=== PATIENT | female | born 1960 | race Caucasian/White ===

== ENCOUNTER → 2018-09-16 | Outpatient (CLI) | payer OTHER ==
[~2018-09-16] MED LIST: (None)20 M1 PO; ACCOLATE; ALBIPROI INH; ALBU.083IS; ALBU90I INH; ALBU90OI; ALBU90OI INH; ALBU90OI61 INH; AMIT10 PO; AMIT25 PO; AMIT50 PO; AMOCLA500 PO; AMOX500 PO; ASPI81CH PO; ASPI81EC PO; AZIT250 PO; AZIT500 PO; Amoxicillin500 MG PO; Aspirin EC81 MG PO; Augmentin 875-1 EACH PO; BUDE6HFA INH; CEFP200; CEPH500; CEPH500 PO; CETI10 PO; CETI5; CHOL10002 PO; CIPRO500 MG PO; CLIN150 PO; CRUTCH3 USE; CYCL10; CYCL10 PO; Cetirizine HCl10 MG PO; Cipro500 MG PO; Cleocin HCl300 MG PO; DOCSEN PO; DOCU100 PO; EFFEXOR; ENOX100I SQ; ENOX60I SC; ESOM20; Flonase 0.05% N16 GM; Garamycin5 ML BOTHEYES; HYDACE10B; HYDACE10B PO; HYDACE5; HYDACE5 PO; HYDACE7.5; HYDGUAL120; HYDGUAL120 PO; HYDMOR2 PO; HYDR1TAB94; Inspiration1 EACH MC; Jantoven5 MG PO; Keflex500 MG PO; LACT10SY PO; LAVAP17G PO; MEDR10; MEDR5; MEDROXYPROGESTERONE; METH10; METH10 PO; MINO100 PO; MINOCIN; MIRT15 PO; MONT10T PO; Mucinex600 MG PO; NAPR375 PO; NAPR500 PO; NICO2 PO; NITR100CA PO; Norco 10-325 T1 EACH PO; Norco 5-325 Ta1 EACH PO; OMEP20ER; OMEP20ER PO; OMEP40CA12 PO; OXYACE5T PO; OXYC5 PO; Omeprazole20 M1 PO; PANT40; PARO12.5 PO; PARO25 PO; PARO30 PO; PAROXETINE ER37.5 MG PO; PENVK500 PO; PERM5TC TOP; PHENA200 PO; PRAV20; PRAV20 PO; PRED10 PO; PRED20 PO; PREG150; PREG50; PROACE100 PO; PROG100; PROGESTERONE; PULMACORT; Pravastatin Sod80 MG PO; Prednisone20 MG PO; Pyridium100 MG PO; RABE20; RANI150 PO; RXCYCL10 PO; RXHYD5325 PO; RXPROACE PO; RXSULTRIDS PO; SULTRIDS PO; SUPRENZA ODT15 MG PO; TRAM50 PO; TRAZ100; TRAZ100 PO; TRAZ50; TRAZADONE; VALA500 PO; VALD10; VANC250 PO; VENL150ER; VENL75; VENL75ER; VENL75ER PO; VICODIN; Ventolin Soln3 ML INH; Vibramycin100 MG PO; WARF10; WARF10 PO; WARF5; WARF5 PO; WARF7.5; WARF7.5 PO; WARFARIN; ZAFI20; ZYRTEC10 M1 PO; Zithromax250 MG PO; Zofran Odt4 MG SL; Zofran4 MG PO; Zofran8 MG PO; [UNRECOGNIZED DRUG - OTHER]
== END | disposition home or self-care (01) ==
LOC: LAB 19:22 → LAB SHORT 19:22
DX: N39.0 Urinary tract infection, site not specified (principal)
CPT/HCPCS: 87086

== ENCOUNTER 2018-09-17 17:52 | Emergency (ER) | payer OTHER ==
[~2018-09-17] VITALS: Ht 154.9 cm; Wt 104.3 kg
[~2018-09-17 17:52] MED LIST changes: -NICO2 PO
[2018-09-17 18:46] LABS: International Normalized Ratio 3.26
[2018-09-17] MEDS ORDERED: NICO2 PO (19:39)
== END 2018-09-17 19:50 | disposition home or self-care (01) ==
LOC: ER 17:52
PROVIDERS: Physician Assistant
DX: I82.532 Chronic embolism and thrombosis of left popliteal vein (principal); E78.00 Pure hypercholesterolemia, unspecified; G47.30 Sleep apnea, unspecified; F17.210 Nicotine dependence, cigarettes, uncomplicated; Z88.5 Allergy status to narcotic agent; Z91.040 Latex allergy status; Z91.048 Other nonmedicinal substance allergy status; Z79.899 Other long term (current) drug therapy; Z79.82 Long term (current) use of aspirin
CPT/HCPCS: 85610; 93971; 99284-25

== ENCOUNTER 2021-09-22 22:51 | Emergency (ER) | payer OTHER ==
[~2021-09-22] VITALS: Ht 154.9 cm; Wt 104.3 kg
[~2021-09-22 22:51] MED LIST changes: +NICO2 PO
[2021-09-22 23:42] LABS: Source, Urine Clean Catch
[2021-09-22 23:44] LABS: BASOPHILS ABSOLUTE AUTO 0.07 K/mm3 (0.00-0.23); BASOPHILS PERCENT AUTO 1 % (0-2); EOSINOPHILS ABSOLUTE AUTO 0.14 K/mm3 (0.00-0.68); EOSINOPHILS PERCENT AUTO 1 % (0-6); Hematocrit 49.5 % (33.0-51.0); Hemoglobin 16.3 g/dL (11.5-16.0); Mean Corpuscular HGB 29.3 pg (26.0-34.0); Mean Corpuscular HGB Conc 32.9 g/dL (31.5-36.5); Mean Corpuscular Volume 89 fL (80-100); Platelet Count 402 K/mm3 (150-400); RDW Coefficient Variation 17.1 % (11.7-14.2); RDW Standard Deviation 56.5 fL (35.1-46.3); Red Blood Cell Count 5.56 M/mm3 (3.80-5.20); White Blood Cell Count 14.47 K/mm3 (4.00-11.30)
[2021-09-22 23:46] LABS: Bilirubin, Urine Neg (Neg); Blood, Urine 5+ (Neg); Glucose Qualitative, Urine Neg (Neg); Ketones, Urine Neg (Neg); Leukocyte Esterase, Urine 2+ (Neg); Nitrite, Urine Neg (Neg); Protein, Urine 1+ (Neg); Specific Gravity, Urine 1.015 (1.003-1.022); Urobilinogen, Urine NORM (Normal)
[2021-09-22 23:52] LABS: IMMATURE GRAN ABSOLUTE AUTO 0.05 K/mm3 (0.00-0.10); IMMATURE GRAN PERCENT AUTO 0 % (0-1); LYMPHOCYTES ABSOLUTE AUTO 4.23 K/mm3 (0.84-5.20); LYMPHOCYTES PERCENT AUTO 29 % (21-46); MONOCYTES ABSOLUTE AUTO 1.82 K/mm3 (0.16-1.47); MONOCYTES PERCENT AUTO 13 % (4-13); NEUTROPHILS ABSOLUTE AUTO 8.16 K/mm3 (1.96-9.15); NEUTROPHILS PERCENT AUTO 56 % (41-73)
[2021-09-22 23:55] LABS: Appearance, Urine Hazy (Clear); Color, Urine Yellow (P-Yellow)
[2021-09-22 23:56] LABS: Bacteria Few /hpf; Squamous Epithelial Cells Rare /hpf (Few); White Blood Cells, Urine 50-100 /hpf (0-5)
[2021-09-23 00:02] LABS: Alanine Aminotransfer (ALT/SGP 38 U/L (12-78); Albumin, Blood 3.6 g/dL (3.4-5.0); Albumin/Globulin Ratio 0.8 (0.8-1.8); Alk Phos 131 U/L (50-136); Anion Gap 8 mmol/L (6-16); Aspartate Aminotrans (AST/SGOT 35 U/L (12-37); Bilirubin, Total 0.3 mg/dL (0.1-1.0); Blood Urea Nitrogen 9 mg/dL (8-24); Bun/Creatinine Ratio 10.3 (12.0-20.0); CO2, Blood 27 mmol/L (21-32); Calcium, Blood 9.3 mg/dL (8.5-10.1); Chloride, Blood 103 mmol/L (98-108); Creatinine, Blood 0.88 mg/dL (0.40-1.00); Globulin, Blood 4.7 g/dL (2.2-4.0); Glomerular Filtration Rate >60 (60-); Glucose, Blood 143 mg/dL (70-99); Potassium, Blood 3.8 mmol/L (3.5-5.5); Sodium, Blood 138 mmol/L (136-145); Total Protein, Blood 8.3 g/dL (6.4-8.2)
[2021-09-23 00:15] LABS: Phosphorus, Blood 2.9 mg/dL (2.5-4.9)
[2021-09-23] MEDS ORDERED: CEPH500 PO (01:46)
== END 2021-09-23 01:55 | disposition home or self-care (01) ==
LOC: ER 22:51
PROVIDERS: Student in an Organized Health Care Education/Training Program
DX: N39.0 Urinary tract infection, site not specified (principal); E78.00 Pure hypercholesterolemia, unspecified; F17.210 Nicotine dependence, cigarettes, uncomplicated; Z88.5 Allergy status to narcotic agent; Z91.040 Latex allergy status; Z88.8 Allergy status to other drugs, medicaments and biological substances; Z79.899 Other long term (current) drug therapy
CPT/HCPCS: 36415; 74176; 80053; 81001; 83605; 83735; 84100; 85025; 87086; 96374; 99284; J0696; J7030

== ENCOUNTER 2022-12-25 07:36 | Day surgery (SDC) | payer OTHER ==
--- NOTE | 2022-12-24 14:01 | NUR ---
MEDICATIONS AND ALLERGIES UPDATED WITH PATIENT ON THE PHONE.
[2022-12-25] VITALS (21 sets, daily range): BP systolic 81–142; BP diastolic 51–80
[~2022-12-25] VITALS: Ht 162.6 cm; Wt 94.0 kg
[~2022-12-25 07:36] MED LIST changes: +METF500 PO; +NYAMYC15 G1 TOP; -Omeprazole20 M1 PO; +Prinivil10 MG PO; +TIOT18 INH
--- NOTE | 2022-12-25 08:45 | NUR ---
Ambulatory in Day Surgery. History, Chart, Medications and Allergies reviewed before start of procedure. Lungs clear T/O to Auscultation. Patient confirms NPO status and agrees with scheduled surgery. Pre-Op teaching done. Pt verbalizes understanding. Patient States Post-Procedure ride home has been arranged.
--- NOTE | 2022-12-25 08:58 | NUR ---
12/25/22 0858 Camila Diallo HISTORY, CHART, MEDICATIONS AND ALLERGIES REVIEWED BEFORE START OF PROCEDURE. PATIENT CONFIRMS NPO STATUS AND AGREES WITH SCHEDULED PROCEDURE. 3-LEAD EKG REVIEWED WITH PHYSICIAN PRIOR TO START OF PROCEDURE. MONITOR INTACT WITH CONTINUOUS PULSE OXIMETRY,CAPNOGRAPHY, 3-LEAD EKG, INTERMITTENT BP. SUPPLEMENTAL O2 TO BE TITRATED THROUGHOUT PROCEDURE TO MAINTAIN O2 SATURATION ABOVE 90%. PATIENT DETERMINED TO BE ASA APPROPRIATE FOR PROPOFOL SEDATION PRIOR TO START OF PROCEDURE BY .
--- NOTE | 2022-12-25 09:58 | NUR ---
Discharge instructions reviewed with patient. Patient verbalizes understanding. Copy given to patient to take home. Discharged via wheelchair to private car for ride home.
== END 2022-12-25 10:05 | disposition home or self-care (01) ==
LOC: ORSCMMR 07:36 → ORD 08:30 → ORSCMMR 08:30
PROVIDERS: Internal Medicine Gastroenterology
PROC: 0DBM8ZX Excision of Descending Colon, Via Natural or Artificial Opening Endoscopic, Diagnostic (ICD-10-PCS; principal; 2022-12-25 08:30)
PROC: 0DBN8ZX Excision of Sigmoid Colon, Via Natural or Artificial Opening Endoscopic, Diagnostic (ICD-10-PCS; principal; 2022-12-25 08:30)
DX: Z12.11 Encounter for screening for malignant neoplasm of colon (principal); D12.4 Benign neoplasm of descending colon; D12.5 Benign neoplasm of sigmoid colon; J44.9 Chronic obstructive pulmonary disease, unspecified; E11.9 Type 2 diabetes mellitus without complications; I10 Essential (primary) hypertension; K21.9 Gastro-esophageal reflux disease without esophagitis; E78.00 Pure hypercholesterolemia, unspecified; Z86.718 Personal history of other venous thrombosis and embolism; Z86.711 Personal history of pulmonary embolism; F17.210 Nicotine dependence, cigarettes, uncomplicated; Z79.01 Long term (current) use of anticoagulants; Z79.84 Long term (current) use of oral hypoglycemic drugs; Z79.02 Long term (current) use of antithrombotics/antiplatelets; Z79.899 Other long term (current) drug therapy
CPT/HCPCS: 82947; 88305; J2250; J2704; J7120

== ENCOUNTER 2023-05-21 06:56 | Day surgery (SDC) | payer OTHER ==
[~2023-05-21] VITALS: Ht 154.9 cm; Wt 89.8 kg
[2023-05-21] VITALS (8 sets, daily range): BP systolic 129–160; BP diastolic 70–133
--- NOTE | 2023-05-21 10:30 | NUR ---
1000 PATIENT ARRIVES BACK FROM THE [facility] VIA BED, PLACED ON THE MONITOR AND CALL LIGHT IN REACH. SBAR RECEIVED FROM MALVIN WELCH RN. BILATERAL FLOWSTASIS TO POPITEALS IN PLACE. NO BLEEDING, NO HEMATOMAS NOTED. NIPB ELEVATED AND PATIENT C/O 8/10 LOW BACK PAIN FROM LYING ON TABLE ON [place]. REPOSITIONED PATIENT TO HER RIGHT SIDE WITH PILLOW BETWEEN HER LEGS AND FOR SUPPORT.
--- NOTE | 2023-05-21 10:33 | NUR ---
1025 COMNTINUES TO HAVE LOW BACK PAIN. OBTAINED ORDER FOR TYLENOL AND GAVE 2 TABS TO THE PATIENT.
--- NOTE | 2023-05-21 12:27 | NUR ---
1130 FLOWSTASIS BILATERALLY REMOVED WITHOUT DIFFICULTY. SITES CLEANED AND CLOT DOTS PLACED. PATIENT TOLERATED WELL.
--- NOTE | 2023-05-21 12:28 | NUR ---
1215 PATIENT UP TO THE RESTROOM AND AND THE WAY BACK FROM THE RESTROOM HAD A CRAMP IN THE LEFT CALF. ASSISTED BACK TO BED. NO BLEEDING NOTED. DR. VAZQUEZ TO THE BEDSIDE AND SPOKE TO THE PATIENT.
--- NOTE | 2023-05-21 12:35 | NUR ---
MOTHER AT THE BEDSIDE.
--- NOTE | 2023-05-21 13:14 | NUR ---
1300 PIV REMOVED, CATH TIP INTACT. PRESSURE DRESSING APPLIED TO THE LAND. PATIENT DRESSED SELF, ALL BELONGINGS GATHERED AND MOM WENT TO GET VEHICLE HOME HEALTH NURSE HOME. REVIEWED DISCHARGE INSTRUCTIONS. ALL QUESTIONS ANSWERED AND COPIES GIVEN.
--- NOTE | 2023-05-21 13:19 | NUR ---
PATIENT DISCHARGED HOME WITH MOM TRAVEL JOURNALIST.
== END 2023-05-21 14:07 | disposition home or self-care (01) ==
LOC: MHTC 06:56
DX: I87.002 Postthrombotic syndrome without complications of left lower extremity (principal); E78.5 Hyperlipidemia, unspecified; I10 Essential (primary) hypertension; E11.9 Type 2 diabetes mellitus without complications; Z79.84 Long term (current) use of oral hypoglycemic drugs; Z86.718 Personal history of other venous thrombosis and embolism
CPT/HCPCS: 37187; 37191; 37221; 37224; 37252; 37253; 75820; 75825; 76937; 99152; 99153; A9270; C1725; C1753; C1757; C1769; C1876; C1887; C1894; J1644; J2250; J3010; J7030; Q9967

== ENCOUNTER 2023-05-26 21:20 | Emergency (ER) | payer OTHER ==
[~2023-05-26] VITALS: Ht 154.9 cm; Wt 86.2 kg
[2023-05-26 21:24] VITALS: BP 138/65
[2023-05-26 21:56] LABS: BASOPHILS ABSOLUTE AUTO 0.06 K/mm3 (0.00-0.23); BASOPHILS PERCENT AUTO 0 % (0-2); EOSINOPHILS ABSOLUTE AUTO 0.12 K/mm3 (0.00-0.68); EOSINOPHILS PERCENT AUTO 1 % (0-6); Hemoglobin 12.6 g/dL (11.5-16.0); IMMATURE GRAN ABSOLUTE AUTO 0.06 K/mm3 (0.00-0.10); IMMATURE GRAN PERCENT AUTO 0 % (0-1); LYMPHOCYTES ABSOLUTE AUTO 2.95 K/mm3 (0.84-5.20); LYMPHOCYTES PERCENT AUTO 21 % (21-46); MONOCYTES ABSOLUTE AUTO 0.86 K/mm3 (0.16-1.47); MONOCYTES PERCENT AUTO 6 % (4-13); Mean Corpuscular HGB 29.4 pg (26.0-34.0); Mean Corpuscular HGB Conc 33.2 g/dL (31.5-36.5); Mean Corpuscular Volume 89 fL (80-100); Mean Platelet Volume 9.2 fL (9.1-12.4); NEUTROPHILS ABSOLUTE AUTO 10.11 K/mm3 (1.96-9.15); NEUTROPHILS PERCENT AUTO 72 % (41-73); Platelet Count 387 K/mm3 (150-400); RDW Coefficient Variation 16.7 % (11.7-14.2); RDW Standard Deviation 54.3 fL (35.1-46.3); Red Blood Cell Count 4.28 M/mm3 (3.80-5.20); White Blood Cell Count 14.16 K/mm3 (4.00-11.30)
[2023-05-26 22:14] LABS: Albumin/Globulin Ratio 0.7 (0.8-1.8); Bilirubin, Total 0.3 mg/dL (0.1-1.0); Bun/Creatinine Ratio 16.5 (12.0-20.0); Calcium, Blood 8.8 mg/dL (8.5-10.1); Creatinine, Blood 0.79 mg/dL (0.40-1.00); Globulin, Blood 4.6 g/dL (2.2-4.0); Potassium, Blood 4.1 mmol/L (3.5-5.5); Total Protein, Blood 7.6 g/dL (6.4-8.2)
[2023-05-27] MEDS ORDERED: Norco 10-325 T1 EACH PO (01:30)
[2023-05-27 01:57] LABS: International Normalized Ratio 1.96; Prothrombin Time Results 19.8 Sec (9.7-11.5)
== END 2023-05-27 02:35 | disposition home or self-care (01) ==
LOC: ER 21:20
PROVIDERS: Emergency Medicine; Student in an Organized Health Care Education/Training Program
DX: G89.18 Other acute postprocedural pain (principal); M79.662 Pain in left lower leg; I82.402 Acute embolism and thrombosis of unspecified deep veins of left lower extremity; E78.00 Pure hypercholesterolemia, unspecified; G47.30 Sleep apnea, unspecified; Z86.711 Personal history of pulmonary embolism; F17.210 Nicotine dependence, cigarettes, uncomplicated; Z79.01 Long term (current) use of anticoagulants; Z79.82 Long term (current) use of aspirin; Z79.84 Long term (current) use of oral hypoglycemic drugs; Z79.899 Other long term (current) drug therapy; Z88.5 Allergy status to narcotic agent; Z91.040 Latex allergy status; Z91.048 Other nonmedicinal substance allergy status
CPT/HCPCS: 73701; 80053; 85025; 85610; 93971; 96372; 99284-25; A9270; J1885; Q9967

== ENCOUNTER → 2023-10-22 | Outpatient (CLI) | payer OTHER | END | disposition home or self-care (01) | LOC: LAB 17:29 → LAB SHORT 17:29 | DX: L02.414 Cutaneous abscess of left upper limb (principal) | CPT/HCPCS: 87070; 87075; 87205 ==

== ENCOUNTER 2024-01-04 10:51 | Emergency (ER) | payer OTHER ==
[~2024-01-04] VITALS: Ht 154.9 cm; Wt 77.1 kg
[2024-01-04 11:10] VITALS: BP 135/84
[2024-01-04] MEDS ORDERED: HYDROcodone 5-APAP 325 TAB PO ONE (11:15)
[2024-01-04] MEDS ORDERED: HYDR1TAB94 PO (12:40)
== END 2024-01-04 13:05 | disposition home or self-care (01) ==
LOC: ER 10:51
DX: S42.202A Unspecified fracture of upper end of left humerus, initial encounter for closed fracture (principal); S09.90XA Unspecified injury of head, initial encounter; F17.210 Nicotine dependence, cigarettes, uncomplicated; E78.00 Pure hypercholesterolemia, unspecified; G47.30 Sleep apnea, unspecified; W17.2XXA Fall into hole, initial encounter; Z79.01 Long term (current) use of anticoagulants; Z79.899 Other long term (current) drug therapy; Z79.82 Long term (current) use of aspirin; Z79.84 Long term (current) use of oral hypoglycemic drugs; Z88.5 Allergy status to narcotic agent; Z91.040 Latex allergy status; Z88.8 Allergy status to other drugs, medicaments and biological substances; Z91.048 Other nonmedicinal substance allergy status
CPT/HCPCS: 70450; 73060; 99284-25; A9270

== ENCOUNTER 2024-06-30 17:12 | Emergency (ER) | payer OTHER ==
[~2024-06-30] VITALS: Ht 154.9 cm; Wt 88.5 kg
[~2024-06-30 17:12] MED LIST changes: +HYDR1TAB94 PO
[2024-06-30 17:26] VITALS: BP 164/72
[2024-06-30] MEDS ORDERED: ASPERFLEX1 EACH TOP (20:25)
== END 2024-06-30 20:41 | disposition home or self-care (01) ==
LOC: ER 17:12
DX: M79.622 Pain in left upper arm (principal); F17.210 Nicotine dependence, cigarettes, uncomplicated; E78.00 Pure hypercholesterolemia, unspecified; Z88.5 Allergy status to narcotic agent; Z91.040 Latex allergy status; Z79.899 Other long term (current) drug therapy; Z79.01 Long term (current) use of anticoagulants; Z79.82 Long term (current) use of aspirin; Z86.718 Personal history of other venous thrombosis and embolism; Z86.711 Personal history of pulmonary embolism; W01.0XXA Fall on same level from slipping, tripping and stumbling without subsequent striking against object, initial encounter; Y92.027 Garden or yard of mobile home as the place of occurrence of the external cause
CPT/HCPCS: 73030; 99283-25

== ENCOUNTER 2025-05-28 20:06 | Emergency (ER) | payer OTHER ==
[~2025-05-28] VITALS: Ht 154.9 cm; Wt 90.7 kg
[~2025-05-28 20:06] MED LIST changes: +ASPERFLEX1 EACH TOP; +Keflex125 MG/5 M PO
[2025-05-28] MEDS ORDERED: Ketorolac Tromethamine 30mg Vial IM ONE (20:40)
[2025-05-28] MEDS ORDERED: RX Prepack 6 Tabs Oxycodone 5mg UD ONE ×2 (23:35→23:40)
[2025-05-28 23:43] VITALS: BP 150/72
== END 2025-05-28 23:41 | disposition home or self-care (01) ==
LOC: ER 20:06
DX: S46.911A Strain of unspecified muscle, fascia and tendon at shoulder and upper arm level, right arm, initial encounter (principal); S20.211A Contusion of right front wall of thorax, initial encounter; M25.541 Pain in joints of right hand; W01.0XXA Fall on same level from slipping, tripping and stumbling without subsequent striking against object, initial encounter
CPT/HCPCS: 71101; 73110; 99284-25; A9270